=== PATIENT | male | born 1985 | race Caucasian/White ===

== ENCOUNTER 2016-07-10 08:04 | Emergency (ER) | payer SELFPAY ==
[2016-07-10] MEDS ORDERED: PENICILLIN V POTASSIUM 500 MG TABLET PO ONE (08:41)
--- NOTE | 2016-07-10 08:43 | ER Document Report ---
Addendum entered and electronically signed by KAYLENE GARCIA NP 07/10/16 09:46 : Discharge - Discharge Clinical Impression: bronchitis Condition: Good Disposition: HOME, SELF-CARE Instructions: Bronchitis ([facility]), Inhaled Bronchodilators ([facility]), Stop Smoking ( [facility]), Steroid Medication Additional Instructions: Return to the emergency room if worse Quit smoking Plenty of fluids Use them albuterol metered-dose inhaler Finish the prednisone Prescriptions: Albuterol Sulfate [Proair HFA Inhalation Aerosol 8.5 gm MDI] 2 puff IH Q3HP PRN #1 [email or web address] PRN Reason: Prednisone [Deltasone 10 mg Tablet] 10 mg PO ASDIR PRN #21 tablet PRN Reason: Forms: Return to Work Original Note: HPI - HPI Onset: This morning Onset/Duration: Gradual Pain Level: Denies Context: 30-year-old male with a decayed tooth on the top right upper bicuspid now has swelling and abscess this morning. It started hurting. Days ago. - EENT EENT: REPORTS: Nasal Drainage-Clear, Congestion - CARDIOVASCULAR Cardiovascular: DENIES: Chest pain - DERM Skin Color: Normal - NURSING COMMENTS Comment: See triage Past Medical History - Social History Smoking Status: Current Every Day Smoker Cigarette use (# per day): No Chew tobacco use (# tins/day): No Frequency of alcohol use: Social Drug Abuse: None Family History: Reviewed & Not Pertinent Patient has suicidal ideation: No Patient has homicidal ideation: No Renal/ Medical History: Denies: Hx Peritoneal Dialysis Surgical Hx: Negative - Immunizations Hx Diphtheria, Pertussis, Tetanus Vaccination: Yes - 2016 [facility] Provider Document - INFECTION CONTROL TRAVEL OUTSIDE OF THE [place] IN LAST 30 DAYS: No - RESPIRATORY O2 Sat by Pulse Oximetry: 100 Course - Re-evaluation Re-evalutation: 07/10/16 09:40 Chest x-ray is negative. No wheeze after breathing treatment he has used albuterol metered-dose inhaler in the past so we do not need to teach how to use it. I told him I would treat him with prednisone and inhaled bronchodilators and he needs a note for work. 07/10/16 09:41 - Vital Signs Vital signs: Temp Pulse Resp BP Pulse Ox 97.2 F 78 20 126/72 H 100 07/10/16 08:14 07/10/16 08:14 07/10/16 08:14 07/10/16 08:14 07/10/16 08:14 Discharge - Discharge Clinical Impression: bronchitis Condition: Good Disposition: HOME, SELF-CARE Instructions: Stop Smoking ([facility]), Bronchitis ([facility]), Inhaled Bronchodilators ( [facility]), Steroid Medication Additional Instructions: Return to the emergency room if worse Quit smoking Plenty of fluids Use them albuterol metered-dose inhaler Finish the prednisone Prescriptions: Albuterol Sulfate [Proair HFA Inhalation Aerosol 8.5 gm MDI] 2 puff IH Q3HP PRN #1 [email or web address] PRN Reason: Prednisone [Deltasone 10 mg Tablet] 10 mg PO ASDIR PRN #21 tablet PRN Reason:
[2016-07-10] MEDS ORDERED: ALBUTEROL SULFATE 0.083% NEB 2.5 MG/3 ML AMPUL NEB ONE (08:50)
[2016-07-10 09:52] VITALS: BP 125/70
== END 2016-07-10 09:52 | disposition home or self-care (01) ==
LOC: ER 08:04
DX: J40 Bronchitis, not specified as acute or chronic (principal); F17.210 Nicotine dependence, cigarettes, uncomplicated
CPT/HCPCS: 71020; 94640; 99283

== ENCOUNTER 2016-08-07 14:04 | Emergency (ER) | payer SELFPAY ==
[2016-08-07 14:32] VITALS: BP 127/74
[2016-08-07] MEDS ORDERED: OXYCODONE-ACETAMINOPHEN 5-325 MG TABLET PO ONE (16:42)
--- NOTE | 2016-08-07 17:29 | ER Document Report ---
HPI - HPI Patient complains to provider of: shoulder injury Onset: Yesterday Onset/Duration: Sudden Quality of pain: Sharp Pain Level: 5 Context: Patient states that he had a hold of his dogs lead yesterday and the dog pulled away from him causing him to fall on the ground. Patient complains of feeling like his shoulder came out of joint, but states that he put his shoulder back into joint yesterday. Patient reports previous history of shoulder dislocation in the past. Patient is right-hand dominant. Associated Symptoms: Other - Left shoulder joint pain Exacerbated by: Movement Relieved by: Denies Similar symptoms previously: Yes Recently seen / treated by doctor: No - ROS ROS below otherwise negative: Yes Systems Reviewed and Negative: Yes All other systems reviewed and negative - CONSTITUTIONAL Constitutional: DENIES: Fever, Chills - NEURO Neurology: DENIES: Weakness - GASTROINTESTINAL Gastrointestinal: DENIES: Nausea, Patient vomiting - MUSCULOSKELETAL Musculoskeletal: REPORTS: Extremity pain - Left shoulder. DENIES: Back Pain, Neck Pain - DERM Skin Color: Normal Skin Problems: None Past Medical History - General Information source: Patient - Social History Smoking Status: Current Every Day Smoker Frequency of alcohol use: Occasional Drug Abuse: None Occupation: [employer] Lives with: Family Family History: Reviewed & Not Pertinent Pulmonary Medical History: Reports: Hx Asthma Renal/ Medical History: Denies: Hx Peritoneal Dialysis Surgical Hx: Negative - Immunizations Hx Diphtheria, Pertussis, Tetanus Vaccination: Yes - 2016 [facility] Provider Document - CONSTITUTIONAL Agree With Documented VS: Yes Exam Limitations: No Limitations General Appearance: WD/WN, No Apparent Distress - INFECTION CONTROL TRAVEL OUTSIDE OF THE [place] IN LAST 30 DAYS: No - HEENT HEENT: Atraumatic, Normocephalic - NECK Neck: Normal Inspection, Supple - RESPIRATORY Respiratory: Breath Sounds Normal, No Respiratory Distress O2 Sat by Pulse Oximetry: 99 - CARDIOVASCULAR Cardiovascular: Regular Rate, Regular Rhythm Pulses: Normal: Radial - MUSCULOSKELETAL/EXTREMETIES Musculoskeletal/Extremeties: Tender - Tenderness involving left shoulder joint. Patient unable to flex or abduct left shoulder past 90 secondary to tenderness. No dislocation - NEURO Level of Consciousness: Awake, Alert, Appropriate Motor/Sensory: No Sensory Deficit - DERM Integumentary: Warm, Dry, No Rash Course - Vital Signs Vital signs: Temp Pulse Resp BP Pulse Ox 98.2 F 80 20 127/74 H 99 08/07/16 14:31 08/07/16 14:31 08/07/16 14:31 08/07/16 14:31 08/07/16 14:31 - Diagnostic Test Radiology reviewed: Image reviewed, Reports reviewed Procedures - Immobilization Left Shoulder Pre-Proc Neuro Vasc Exam: Normal Immobilizer type: Shoulder immobilizer Performed by: RN Post-Proc Neuro Vasc Exam: Normal Alignment checked and good: Yes Discharge - Discharge Clinical Impression: Sprain of shoulder, left Qualifiers: Encounter type: initial encounter Shoulder sprain type: unspecified sprain Qualified Code(s): S43.402A - Unspecified sprain of left shoulder joint, initial encounter Condition: Stable Disposition: HOME, SELF-CARE Instructions: Shoulder Injury ([facility]), Temporary Sling ([facility]), Ice & Elevation ( [facility]), Oral Narcotic Medication ([facility]) Additional Instructions: Return immediately for any new or worsening symptoms Followup with your primary care provider, call tomorrow to make a followup appointment Follow up with orthopedic Dr. for further evaluation, call tomorrow for an appointment time Wear shoulder immobilizer for the next 4-5 days and then remove. Prescriptions: Oxycodone HCl/Acetaminophen [Percocet 5-325 mg Tablet] 1 - 2 tab PO ASDIR PRN # 15 tablet PRN Reason: Forms: Return to Work Referrals: [facility] [Provider Group] - Follow up in 3-5 days
== END 2016-08-07 17:49 | disposition home or self-care (01) ==
LOC: ER 14:04
DX: S43.402A Unspecified sprain of left shoulder joint, initial encounter (principal); W19.XXXA Unspecified fall, initial encounter; M25.512 Pain in left shoulder; Z87.828 Personal history of other (healed) physical injury and trauma; F17.200 Nicotine dependence, unspecified, uncomplicated; J45.909 Unspecified asthma, uncomplicated
CPT/HCPCS: 99283; 73030; L3650

== ENCOUNTER 2017-01-07 17:17 | Emergency (ER) | payer SELFPAY ==
[2017-01-07 17:25] VITALS: BP 132/72
[2017-01-07] MEDS ORDERED: CLINDAMYCIN HCL 150 MG CAPSULE PO ONE (18:05)
[2017-01-07] MEDS ORDERED: OXYCODONE-ACETAMINOPHEN 5-325 MG TABLET PO ONE (18:05)
[2017-01-07] MEDS ORDERED: SULFAMETHOXAZOLE/TRIMETHOPRIM 800-160 MG TABLET PO ONE (18:08)
--- NOTE | 2017-01-07 18:59 | RADIOLOGY REPORT (SQ) ---
EXAM DESCRIPTION: KNEE RIGHT 3 VIEWS COMPLETED DATE/TIME: 01/07/2017 6:32 pm REASON FOR STUDY: knee pain and swelling COMPARISON: None. NUMBER OF VIEWS: 3 TECHNIQUE: AP, lateral, and sunrise patella radiographic images acquired of the right knee. LIMITATIONS: None. FINDINGS: MINERALIZATION: Normal. BONES: No acute fracture or dislocation. No worrisome bone lesions. JOINT: No effusion. SOFT TISSUES: Prepatellar soft tissue swelling. No radio-opaque foreign body. OTHER: No other significant finding. IMPRESSION: Prepatellar soft tissue swelling. No radio-opaque foreign body. No fracture. TECHNICAL DOCUMENTATION: JOB ID: [id number] [employer]- All Rights Reserved
--- NOTE | 2017-01-07 19:33 | ER Document Report ---
ED Extremity Problem, Lower - General Chief Complaint: R knee pain Stated Complaint: RIGHT KNEE PAIN Time Seen by Provider: 01/07/17 17:52 Notes: Patient is a 31-year-old male presents to emergency room complaining of right knee Pain. Patient states that started yesterday but got worse today. Patient states that he has had pain with knee flexion as well as redness started today. States that he has been able to walk and it does not hurt to stand on it hurts to bend it he is able to bend it to about 90. 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 Patient otherwise denies any direct trauma or injury to the knee. Denies any recent abrasions or lacerations to the knee. Patient also plays softball in his spare time. Patient denies any previous history of gout or family history of gout. Patient denies any previous diagnosis of MRSA. Denies any fevers or chills TRAVEL OUTSIDE OF THE [place] IN LAST 30 DAYS: No - Related Data Allergies/Adverse Reactions: No Known Allergies Allergy (Unverified 04/02/16 00:19) Past Medical History - Social History Smoking Status: Never Smoker Family History: Reviewed & Not Pertinent Pulmonary Medical History: Reports: Hx Asthma Renal/ Medical History: Denies: Hx Peritoneal Dialysis - Immunizations Hx Diphtheria, Pertussis, Tetanus Vaccination: Yes - 2016 Review of Systems - Review of Systems Constitutional: No symptoms reported Musculoskeletal: See HPI Skin: See HPI -: Yes All other systems reviewed and negative Physical Exam - Vital signs Vitals: Temp Pulse Resp BP Pulse Ox 98.3 F 79 16 132/72 H 99 01/07/17 17:23 01/07/17 17:23 01/07/17 17:23 01/07/17 17:23 01/07/17 17:23 - Notes Notes: PHYSICAL EXAM GENERAL: Alert, interacts well. NECK: Full range of motion. Supple. Trachea midline. LUNGS: Clear to auscultation bilaterally, no wheezes, rales, or rhonchi. No respiratory distress. HEART: Regular rate and rhythm. No murmurs, gallops, or rubs. EXTREMITIES: Moves all extremities spontaneously except for the right lower extremity. Patient is able to flex his knee to approximately 90 but with pain on the patellar tendon. Patient has notable swelling on the prepatellar bursa with overlying erythema and inflammation. Otherwise the rest of the knee nontender to palpation. No pain with axial loading of the joint. No laxity. No edema, radial and dorsalis pedis pulses 2/4 bilaterally. No cyanosis. NEUROLOGICAL: Alert and oriented x4. Normal speech. PSYCH: Normal affect, normal mood. SKIN: Warm, dry, normal turgor. No rashes or lesions noted. Course - Re-evaluation Re-evalutation: 01/07/17 20:35 Patient is a 31-year-old male who presents emergency department complaining of right knee pain. He is hemodynamically stable, no acute distress and afebrile. X-ray shows prepatellar inflammation without any evidence of generalized effusion or foreign body. Patient's presentation is consistent with prepatellar bursitis. Patient will be initiating antibiotics as well as pain medication. Site marked and patient instructed to follow-up in 5-7 days for wound check. Patient given strict return precautions otherwise and he expresses understanding. Patient is agreeable with plan. - Vital Signs Vital signs: Temp Pulse Resp BP Pulse Ox 98.3 F 79 16 132/72 H 99 01/07/17 17:23 01/07/17 17:23 01/07/17 17:23 01/07/17 17:23 01/07/17 17:23 - Diagnostic Test Radiology reviewed: Image reviewed, Reports reviewed Discharge - Discharge Clinical Impression: Prepatellar bursitis Qualifiers: Laterality: right Qualified Code(s): M70.41 - Prepatellar bursitis, right knee Condition: Good Disposition: HOME, SELF-CARE Instructions: Use of Crutches ([facility]), Ice & Elevation ([facility]), Oral Narcotic Medication ([facility]), Bursitis ([facility]) Additional Instructions: Please be sure to return to the emergency department if you feel your symptoms are getting worse, redness is spreading, fevers sustained over 102.5 not responding to Tylenol or Motrin walking, pain with movement of your knee. Please return to the emergency department in 5-7 days for wound check Prescriptions: Ibuprofen [Motrin 800 mg Tablet] 800 mg PO Q8H PRN #30 tab PRN Reason: Oxycodone HCl/Acetaminophen [Percocet 5-325 mg Tablet] 1 - 2 tab PO Q4H PRN #15 tablet PRN Reason: Sulfamethoxazole/Trimethoprim [Bactrim Ds Tablet] 2 each PO BID 14 Days
== END 2017-01-07 20:23 | disposition home or self-care (01) ==
LOC: ER 17:17
DX: M70.41 Prepatellar bursitis, right knee (principal); M25.561 Pain in right knee; J45.909 Unspecified asthma, uncomplicated
CPT/HCPCS: 99283

== ENCOUNTER 2017-01-23 11:47 | Emergency (ER) | payer SELFPAY ==
[2017-01-23 12:02] VITALS: BP 124/79
[2017-01-23] MEDS ORDERED: CEPHALEXIN 500 MG CAPSULE PO ONE (13:10)
--- NOTE | 2017-01-23 13:13 | ER Document Report ---
HPI - HPI Patient complains to provider of: Right knee pain Onset: Other - 3 weeks Onset/Duration: Persistent, Better Quality of pain: Achy Pain Level: 3 Context: Patient states that he was seen here earlier this month and treated for bursitis. Patient states that he is still taking his Bactrim. Patient denies any new injury to his knee. Patient states that he has not been doing kneeling activities while at work. Patient denies any fever. Patient states that area of redness has improved and swelling has improved although symptoms have not completely resolved. Patient has not followed up with an orthopedic as previously instructed. Associated Symptoms: Other - Right knee pain Exacerbated by: Movement Relieved by: Denies Similar symptoms previously: Yes Recently seen / treated by doctor: Yes - Earlier this month for this complaint - ROS ROS below otherwise negative: Yes Systems Reviewed and Negative: Yes All other systems reviewed and negative - CONSTITUTIONAL Constitutional: DENIES: Fever, Chills - CARDIOVASCULAR Cardiovascular: DENIES: Chest pain - MUSCULOSKELETAL Musculoskeletal: REPORTS: Extremity pain, Swelling - DERM Skin Color: Normal Skin Problems: None Past Medical History - General Information source: Patient - Social History Smoking Status: Current Every Day Smoker Chew tobacco use (# tins/day): No Frequency of alcohol use: Rare Drug Abuse: Marijuana Occupation: [employer] Family History: Reviewed & Not Pertinent Patient has suicidal ideation: No Patient has homicidal ideation: No - Medical History Medical History: Negative Pulmonary Medical History: Reports: Hx Asthma Renal/ Medical History: Denies: Hx Peritoneal Dialysis Surgical Hx: Negative - Immunizations Hx Diphtheria, Pertussis, Tetanus Vaccination: Yes - 2016 [facility] Provider Document - CONSTITUTIONAL Agree With Documented VS: Yes Exam Limitations: No Limitations General Appearance: WD/WN, No Apparent Distress - INFECTION CONTROL TRAVEL OUTSIDE OF THE [place] IN LAST 30 DAYS: No - HEENT HEENT: Atraumatic, Normocephalic - NECK Neck: Normal Inspection - RESPIRATORY Respiratory: Breath Sounds Normal, No Respiratory Distress O2 Sat by Pulse Oximetry: 93 - CARDIOVASCULAR Cardiovascular: Regular Rate, Regular Rhythm - MUSCULOSKELETAL/EXTREMETIES Musculoskeletal/Extremeties: MAEW, FROM, Tender - Small area of redness overlying the patella concerning for prepatellar bursitis, no concern for septic joint, Edema - Mild swelling over the patellar area of right knee - NEURO Level of Consciousness: Awake, Alert, Appropriate Motor/Sensory: No Motor Deficit - DERM Integumentary: Warm, Dry Course - Vital Signs Vital signs: Temp Pulse Resp BP Pulse Ox 98.3 F 69 124/79 93 01/23/17 11:59 01/23/17 11:59 01/23/17 11:59 01/23/17 11:59 Discharge - Discharge Clinical Impression: Prepatellar bursitis Qualifiers: Laterality: right Qualified Code(s): M70.41 - Prepatellar bursitis, right knee Condition: Stable Disposition: HOME, SELF-CARE Instructions: Anti-Inflammatory Medication ([facility]), Bursitis ([facility]), Cephalexin ( [facility]) Additional Instructions: Return immediately for any new or worsening symptoms Followup with your primary care provider, call tomorrow to make a followup appointment Follow-up with orthopedic doctor for further evaluation, call today for an appointment Finish your antibiotics as previously prescribed in addition to the new one prescribed today Prescriptions: Cephalexin Monohydrate [Keflex 500 mg Capsule] 500 mg PO Q6H 5 Days capsule Ibuprofen [Motrin 800 mg Tablet] 800 mg PO Q8H PRN #15 tab PRN Reason: Oxycodone HCl/Acetaminophen [Percocet 5-325 mg Tablet] 1 tab PO ASDIR PRN #8 tablet PRN Reason: Referrals: [facility] ([facility] [Provider Group] - Follow up tomorrow
== END 2017-01-23 13:15 | disposition home or self-care (01) ==
LOC: ER 11:47
DX: M70.41 Prepatellar bursitis, right knee (principal); M25.561 Pain in right knee; J45.909 Unspecified asthma, uncomplicated; F17.200 Nicotine dependence, unspecified, uncomplicated
CPT/HCPCS: 99283

== ENCOUNTER 2017-03-09 22:58 | Emergency (ER) | payer SELFPAY ==
[2017-03-10] MEDS ORDERED: MORPHINE SULFATE IR 15 MG TABLET PO ONE (00:32)
[2017-03-10] MEDS ORDERED: IBUPROFEN 600 MG TABLET PO ONE (00:32)
--- NOTE | 2017-03-10 01:26 | ER Document Report ---
ED Hand/Wrist Injury - General Chief Complaint: Finger Injury Stated Complaint: FINGER PAIN Time Seen by Provider: 03/10/17 00:04 Notes: Patient is a 31-year-old male without past medical history who presents with an injury to the left right ring finger. Patient states that he was trying to catch a baseball and hit his finger in an abnormal way. Since that time he has had a severe, constant, throbbing pain to the affected digit. Nothing improves the pain and he states any movement worsens the pain. No history of similar injury in the past. He is right-hand dominant. States the swelling has made it difficult to range his finger but he does note that he is still able to flex and extend the finger. Denies any additional injuries. TRAVEL OUTSIDE OF THE [place] IN LAST 30 DAYS: No - Related Data Allergies/Adverse Reactions: No Known Allergies Allergy (Verified 01/23/17 12:00) Past Medical History - General Information source: Patient - Social History Smoking Status: Never Smoker Frequency of alcohol use: None Drug Abuse: None Lives with: Spouse/Significant other Family History: Reviewed & Not Pertinent Pulmonary Medical History: Reports: Hx Asthma Renal/ Medical History: Denies: Hx Peritoneal Dialysis - Immunizations Hx Diphtheria, Pertussis, Tetanus Vaccination: Yes - 2015 Review of Systems - Review of Systems Notes: Constitutional: Negative for fever. Eyes: Negative for visual changes. ENT: Negative for facial injury Cardiovascular: Negative for chest injury. Respiratory: Negative for shortness of breath. Gastrointestinal: Negative for abdominal injury. Genitourinary: Negative for genital injury Musculoskeletal: Positive for right ring finger injury Skin: Negative for laceration/abrasions. Neurological: Negative for head injury. Physical Exam - Vital signs Vitals: Temp Pulse Resp BP Pulse Ox 98.1 F 87 17 132/79 H 97 03/09/17 23:11 03/09/17 23:11 03/09/17 23:11 03/09/17 23:11 03/09/17 23:11 Interpretation: Normal Notes: PHYSICAL EXAMINATION: GENERAL: Well-appearing, well-nourished and in no acute distress. HEAD: Atraumatic, normocephalic. EYES: sclera anicteric, conjunctiva are normal. ENT: Moist mucous membranes. NECK: Normal range of motion LUNGS: Normal work of breathing HEART: 2+ radial pulses bilaterally EXTREMITIES: There is diffuse swelling and ecchymosis at the level of the PIP extending to the DIP of the right ring finger. Full flexion extension at the DIP and PIP of the left ring finger NEUROLOGICAL: No focal neurological deficits. Moves all extremities spontaneously and on command. PSYCH: Normal mood, normal affect. SKIN: Warm, Dry, normal turgor, no rashes or lesions noted. Course - Re-evaluation Re-evalutation: 03/10/17 01:24 No evidence of a septic joint, gout flare, dislocation, or fracture on exam and imaging. Patient does have a ring on the injured finger although the swelling is over the PIP and DIP without any involvement over the metacarpal and PIP interspace. The ring is loose, it spins easily but cannot pass over the knuckle. Unfortunately, this is a tungsten carbide ring and our ring cutters will not work on this. Moreover, patient does not want any additional attempts at removing the ring secondary to extreme pain with attempts at pulling over the knuckle. He has expressed an understanding that if he notices any tightening of the ring around this area he needs to immediately return to the emergency department for emergent removal. To vitals wnl. At this time, I do not see an indication for labs or further imaging. Will discharge with conservative measures, return precautions, and follow-up recommendations. - Vital Signs Vital signs: Temp Pulse Resp BP Pulse Ox 98.1 F 80 17 130/75 H 97 03/09/17 23:11 03/10/17 02:15 03/09/17 23:11 03/10/17 02:15 03/09/17 23:11 - Diagnostic Test Radiology reviewed: Image reviewed, Reports reviewed Radiology results interpreted by me: 03/10/17 02:20 Right hand x-ray: No acute fracture or dislocation Discharge - Discharge Clinical Impression: Injury of right ring finger Qualifiers: Encounter type: initial encounter Qualified Code(s): S69.91XA - Unspecified injury of right wrist, hand and finger(s), initial encounter Condition: Good Disposition: HOME, SELF-CARE Additional Instructions: Your x-ray does not show any acute fracture today. You likely have a soft tissue injury. For your pain: Take ibuprofen 600 mg and acetaminophen 1000 mg every 6 hours together as needed for pain. Continue to apply ice to the area is much your able. Please follow-up with your primary care physician if you do not have improving your symptoms in the next 1-2 weeks. Please return immediately if you develop weakness, numbness, spreading redness from the area, or any other symptoms that are concerning to you.
[2017-03-10 02:16] VITALS: BP 130/75
--- NOTE | 2017-03-10 02:31 | RADIOLOGY REPORT (SQ) ---
EXAM DESCRIPTION: FINGER RIGHT CLINICAL HISTORY: 31 years, Male, trauma COMPARISON: None. NUMBER OF VIEWS: 3 TECHNIQUE: [place] hand radiographic technique. LIMITATIONS: None. FINDINGS: Small displaced right ring finger tuft fracture. No radiopaque soft tissue foreign bodies or soft tissue gas. No other fractures. IMPRESSION: Small displaced left ring finger tuft fracture. 2011 [facility] [employer]- All Rights Reserved
== END 2017-03-10 02:14 | disposition home or self-care (01) ==
LOC: ER 22:58
DX: S69.91XA Unspecified injury of right wrist, hand and finger(s), initial encounter (principal); S69.92XA Unspecified injury of left wrist, hand and finger(s), initial encounter; M79.89 Other specified soft tissue disorders; M79.645 Pain in left finger(s); W21.03XA Struck by baseball, initial encounter
CPT/HCPCS: 99283

== ENCOUNTER 2017-03-10 15:06 | Emergency (ER) | payer SELFPAY ==
[2017-03-10] MEDS ORDERED: BUPIVACAINE HCL 0.5 % INJ/PF 30 ML SDV INJ ONE (16:08)
--- NOTE | 2017-03-10 16:13 | ER Document Report ---
ED General - General Chief Complaint: Finger Injury Stated Complaint: RIGHT FINGER PAIN Time Seen by Provider: 03/10/17 15:57 Mode of Arrival: Ambulatory Information source: Patient Notes: Patient presents to emergency department with complaints of right ring finger swelling and he cannot remove the ring on his finger. Patient reports he was evaluated and treated in the emergency department last night for a finger injury. He was instructed his finger was sprained not fractured. At that time they could not remove his ring but was he was able to move the ring around his finger circumferential. Today he is not no longer able to move the ring around his finger. Patient reports increased pain. TRAVEL OUTSIDE OF THE [place] IN LAST 30 DAYS: No - HPI Onset: Yesterday Onset/Duration: Persistent Quality of pain: Achy Severity: Severe Pain Level: 5 Associated symptoms: None Exacerbated by: Denies Relieved by: Denies Similar symptoms previously: Yes Recently seen / treated by doctor: Yes - Related Data Allergies/Adverse Reactions: No Known Allergies Allergy (Verified 03/10/17 15:09) Past Medical History - General Information source: Patient - Social History Smoking Status: Unknown if Ever Smoked Cigarette use (# per day): No Frequency of alcohol use: None Drug Abuse: None Occupation: [employer] Lives with: Family Family History: Reviewed & Not Pertinent Patient has suicidal ideation: No Patient has homicidal ideation: No Pulmonary Medical History: Reports: Hx Asthma Renal/ Medical History: Denies: Hx Peritoneal Dialysis - Immunizations Hx Diphtheria, Pertussis, Tetanus Vaccination: Yes - 2015 Review of Systems - Review of Systems Notes: Review HPI for review of systems., All other systems negative Physical Exam - Vital signs Vitals: Temp Pulse Resp BP Pulse Ox 97.7 F 79 16 140/80 H 99 03/10/17 15:10 03/10/17 15:10 03/10/17 15:10 03/10/17 15:10 03/10/17 15:10 - Notes Notes: PHYSICAL EXAMINATION: GENERAL: no acute distress HEAD: Atraumatic, normocephalic. EYES: Pupils equal round , extraocular movements intact, sclera anicteric, conjunctiva are normal. ENT: nares patent, Moist mucous membranes. NECK: Normal range of motion, supple LUNGS: RR even/unlabored HEART: Regular rate EXTREMITIES: left 4th digit swollen, ttp, + cap refill, dried blood to finger nail NEUROLOGICAL: Cranial nerves grossly intact. Normal sensory/motor exams. PSYCH: Normal mood, normal affect. SKIN: Warm, Dry, normal turgor, no rashes or lesions noted Course - Re-evaluation Re-evalutation: 03/10/17 Digital block completed on 4th finger, pt reports no pain, Ring removed from 4th digit after much manipulation and soap. Pt tolerated procedure well, pt instructed on medications, tuft fracture, importance of monitoring for infection , return for concerns. He verbalized understanding. - Vital Signs Vital signs: Temp Pulse Resp BP Pulse Ox 97.7 F 70 16 139/90 H 100 03/10/17 15:10 03/10/17 17:14 03/10/17 17:14 03/10/17 17:14 03/10/17 17:14 - Diagnostic Test Radiology reviewed: Image reviewed, Reports reviewed - report from 03/09/17, tuft fx Procedures - Immobilization Right 4th digit Pre-Proc Neuro Vasc Exam: Normal Immobilizer type: Finger splint (Static) Performed by: PCT Post-Proc Neuro Vasc Exam: Normal Alignment checked and good: Yes Discharge - Discharge Clinical Impression: TUFT FRACTURE, RING REMOVAL, Elevated blood pressure reading Condition: Stable Disposition: HOME, SELF-CARE Instructions: Ice & Elevation ([facility]), Open Finger Tuft Fracture ([facility]), Oral Narcotic Medication ([facility]) Additional Instructions: *You have been evaluated for tuft fracture, ring removal *Maintain the splint *Rest/Ice/Elevate your finger *Follow up with orthopedics within one week *Take medication as prescribed for pain and antibiotics *Return to ED for worsening condition, changes, needs Monitor your blood pressure. Your blood pressure was elevated today. This may be because you were anxious, in pain or because you need medication. It is important to follow up with your primary care provider for full evaluation. Prescriptions: Cephalexin Monohydrate [Keflex 250 Mg Capsule] 250 mg PO QID #20 capsule Oxycodone HCl/Acetaminophen [Percocet 5-325 mg Tablet] 1 tab PO ASDIR PRN #15 tablet PRN Reason: Forms: Elevated Blood Pressure, Return to Work
--- NOTE | 2017-03-10 16:38 | RADIOLOGY REPORT (SQ) ---
EXAM DESCRIPTION: FINGER RIGHT COMPLETED DATE/TIME: 03/10/2017 4:18 pm REASON FOR STUDY: pain and swelling 4th digit COMPARISON: None. NUMBER OF VIEWS: Four views. TECHNIQUE: AP, lateral, and oblique images acquired of the right fourth finger. LIMITATIONS: Radiopaque ring on the 4th digit limits evaluation of the proximal phalanx. FINDINGS: MINERALIZATION: Normal. BONES: There is a mildly displaced longitudinal oblique fracture of the palmar base of the 4th digit middle phalanx and a mildly displaced longitudinal oblique fracture of the dorsal base of the 4th dig it distal phalanx. Additionally, there is a nondisplaced tuft fracture of the 4th digit distal phala nx. SOFT TISSUES: No soft tissue swelling. No foreign body. OTHER: No other significant finding. IMPRESSION: Mildly displaced fractures of 4th digit middle and distal phalanges with intra-articular extension. Nondisplaced tuft fracture of the 4th digit distal phalanx. COMMENT: SITE OF TRAUMA/COMPLAINT MARKED/STAMP COMPLETED: No TECHNICAL DOCUMENTATION: JOB ID: [id number] [employer]- All Rights Reserved
[2017-03-10] MEDS ORDERED: OXYCODONE-ACETAMINOPHEN 5-325 MG TABLET PO ONE (17:03)
[2017-03-10] MEDS ORDERED: CEPHALEXIN 500 MG CAPSULE PO ONE (17:03)
[2017-03-10 17:44] VITALS: BP 139/90
== END 2017-03-10 17:14 | disposition home or self-care (01) ==
LOC: ER 15:06
PROC: 2W3JX1Z Immobilization of Right Finger using Splint (ICD-10-PCS; principal; 2017-03-10)
DX: S62.604A Fracture of unspecified phalanx of right ring finger, initial encounter for closed fracture (principal); R03.0 Elevated blood-pressure reading, without diagnosis of hypertension; M79.89 Other specified soft tissue disorders; X58.XXXA Exposure to other specified factors, initial encounter
CPT/HCPCS: 99283

== ENCOUNTER 2017-10-23 23:24 | Emergency (ER) | payer SELFPAY ==
[2017-10-24 00:02] VITALS: BP 134/81
--- NOTE | 2017-10-24 00:08 | ER Document Report ---
ED Skin Rash/Insect Bite/Abscs - General Chief Complaint: Rash Stated Complaint: RASH Time Seen by Provider: 10/23/17 23:54 Mode of Arrival: Ambulatory Information source: Patient TRAVEL OUTSIDE OF THE [place] IN LAST 30 DAYS: No - HPI Notes: 32-year-old male presents emergency department for evaluation of rash to bilateral arms and legs specifically around the knee area approximately 1 week. She reports that he has been crawling around a in crawl spaces at work. He reports that rash mildly itches and there is no pain. He denies taking any new medications. Denies being sick recently. He also denied any fevers, sore throat, joint pain, chest pain, shortness of breath, wheezing, abdominal pain, nausea, vomiting, diarrhea, dysuria, hematuria. - Related Data Allergies/Adverse Reactions: No Known Allergies Allergy (Verified 03/10/17 15:09) Past Medical History - General Information source: Patient - Social History Smoking Status: Current Every Day Smoker Family History: Reviewed & Not Pertinent Pulmonary Medical History: Reports: Hx Asthma Renal/ Medical History: Denies: Hx Peritoneal Dialysis - Immunizations Hx Diphtheria, Pertussis, Tetanus Vaccination: Yes - 2016 Review of Systems - Review of Systems -: Yes All other systems reviewed and negative Physical Exam - Vital signs Vitals: Temp Pulse Resp BP Pulse Ox 97.7 F 71 16 134/81 H 99 10/24/17 00:01 10/24/17 00:01 10/24/17 00:01 10/24/17 00:01 10/24/17 00:01 - Notes Notes: PHYSICAL EXAMINATION: GENERAL: Well-appearing, well-nourished and in no acute distress. HEAD: Atraumatic, normocephalic. ENT: Nares patent, oropharynx clear without exudates. Moist mucous membranes. NECK: Normal range of motion, supple without lymphadenopathy LUNGS: Breath sounds clear to auscultation bilaterally and equal. No wheezes rales or rhonchi. HEART: Regular rate and rhythm without murmurs NEUROLOGICAL: Normal gait, balance, speech, and facial symmetry. PSYCH: Normal mood, normal affect. SKIN: Fine macular papular rash on bilateral arms and on bilateral knees with different stages of healing. Normal blanching. No tenderness to palpation. No hot to the touch. No lymphangitis. No abscess. Otherwise skin is warm and dry with normal turgor. Course - Re-evaluation Re-evalutation: 10/24/17 00:23 Rash is likely contact dermatitis. No evidence of SJS, TEN, or life- threatening illness. She was nontoxic or septic appearing in no acute or respiratory distress. Patient is afebrile not hypoxic. Likelihood of other entities in the differential is insufficient to justify any further testing for them. I discussed care plan at length with patient. Any and all questions were answered. Discharged home with prednisone and Benadryl. Advised patient to follow-up with PCP and take medications as instructed. Also advised him to return immediately to the emergency department for any new, worsening, or concerning symptoms as discussed. He understands and agrees with plan. - Vital Signs Vital signs: Temp Pulse Resp BP Pulse Ox 97.7 F 71 16 134/81 H 99 10/24/17 00:01 10/24/17 00:01 10/24/17 00:01 10/24/17 00:01 10/24/17 00:01 Discharge - Discharge Clinical Impression: Contact dermatitis Qualifiers: Contact dermatitis type: unspecified Contact dermatitis trigger: unspecified trigger Qualified Code(s): L25.9 - Unspecified contact dermatitis, unspecified cause Condition: Good Instructions: Contact Dermatitis ([facility]), Family Physicians / Practices Additional Instructions: Please follow-up with PCP and take medications as instructed. Return immediately to the emergency department for any new, worsening, or concerning symptoms as discussed. Prescriptions: Diphenhydramine HCl [Benadryl 25 mg Capsule] 1 cap PO Q4 PRN #1 pkg PRN Reason: Prednisone 60 mg PO DAILY #15 tablet Forms: Return to Work
== END 2017-10-24 00:20 | disposition home or self-care (01) ==
LOC: ER 23:24
DX: L25.9 Unspecified contact dermatitis, unspecified cause (principal); F17.200 Nicotine dependence, unspecified, uncomplicated
CPT/HCPCS: 99282

== ENCOUNTER 2019-06-22 07:24 | Emergency (ER) | payer BC ==
--- NOTE | 2019-06-22 09:50 | RADIOLOGY REPORT (SQ) ---
EXAM DESCRIPTION: KNEE RIGHT 4 VIEWS COMPLETED DATE/TIME: 06/22/2019 9:29 am REASON FOR STUDY: right knee pain and swelling COMPARISON: None. NUMBER OF VIEWS: Four views. TECHNIQUE: AP, lateral, and both oblique radiographic images acquired of the right knee. LIMITATIONS: None. FINDINGS: MINERALIZATION: Normal. BONES: No acute fracture or dislocation. No worrisome bone lesions. JOINT: Small effusion. SOFT TISSUES: No soft tissue swelling. No radio-opaque foreign body. OTHER: No other significant finding. IMPRESSION: Small joint effusion. TECHNICAL DOCUMENTATION: JOB ID: [id number] [employer]- All Rights Reserved Reading location - IP/workstation name: [email or web address]
[2019-06-22] MEDS ORDERED: HYDROCODONE/ACETAMINOPHEN 5-325 MG (6 TAB/ER DISP) PO PRN (10:10)
[2019-06-22 10:49] VITALS: BP 125/77
--- NOTE | 2019-06-23 11:19 | ER Document Report ---
Entered by SHAGGY BERKOWITZ SCRIBE 06/22/19 1015 Acting as scribe for:DAVID WOLFE IV, MD ED General - General Chief Complaint: Knee Pain Stated Complaint: RIGHT KNEE INJURY Time Seen by Provider: 06/22/19 08:38 Primary Care Provider: PEREZ ARGUELLO MD [Primary Care Provider] - Follow up as needed LEWIS ROMAN JR, DO [ACTIVE PROVISIONAL STAFF] - Follow up in 3-5 days Notes: This 33 year old male presents to the emergency department with complaints of pain and swelling in his right knee. Patient states his knee was injured due to a fall while playing baseball yesterday afternoon. Patient states his leg is "tingling and tight" below his right knee. TRAVEL OUTSIDE OF THE [place] IN LAST 30 DAYS: No - Related Data Allergies/Adverse Reactions: No Known Allergies Allergy (Verified 06/22/19 07:30) Past Medical History - General Information source: Patient - Social History Smoking Status: Current Every Day Smoker Cigarette use (# per day): Yes Drug Abuse: Marijuana Family History: Reviewed & Not Pertinent Patient has suicidal ideation: No Patient has homicidal ideation: No Pulmonary Medical History: Reports: Hx Asthma - Immunizations Hx Diphtheria, Pertussis, Tetanus Vaccination: Yes - 2016 Review of Systems - Review of Systems Constitutional: No symptoms reported EENT: No symptoms reported Cardiovascular: No symptoms reported Respiratory: No symptoms reported Gastrointestinal: No symptoms reported Genitourinary: No symptoms reported Male Genitourinary: No symptoms reported Musculoskeletal: See HPI, Joint pain - right knee, Joint swelling - Right knee Skin: No symptoms reported Hematologic/Lymphatic: No symptoms reported Neurological/Psychological: No symptoms reported -: Yes All other systems reviewed and negative Physical Exam - Vital signs Vitals: Temp Pulse Resp BP Pulse Ox 97.5 F 88 16 123/78 98 06/22/19 07:28 06/22/19 07:28 06/22/19 07:28 06/22/19 07:28 06/22/19 07:28 - General General appearance: Appears well, Alert - HEENT Head: Normocephalic, Atraumatic Eyes: Normal Pupils: PERRL - Respiratory Respiratory status: No respiratory distress - Abdominal Inspection: Normal Distension: No distension - Extremities Knee: Other - Soft tissue swelling of the medial right leg. No step-off, no ligamentous laxity, and no crepitus.. No: Deformity - Neurological Neuro grossly intact: Yes Cognition: Normal Orientation: AAOx4 - Psychological Associated symptoms: Normal affect, Normal mood - Skin Skin Temperature: Warm Skin Moisture: Dry Skin Color: Normal Course - Re-evaluation Re-evalutation: 06/22/19 10:12 Results of ED MSE discussed with patient. Patient instructed to not bear weight on his right lower extremity for at least 4 to 5 days and then start to progress to toe-touch and further advance weightbearing as tolerated as long as it is not painful. All questions were answered prior to discharge. - Vital Signs Vital signs: Temp Pulse Resp BP Pulse Ox 97.6 F 64 16 125/77 99 06/22/19 10:48 06/22/19 10:48 06/22/19 10:48 06/22/19 10:48 06/22/19 10:48 - Diagnostic Test Radiology reviewed: Reports reviewed Discharge - Discharge Clinical Impression: Strain of right knee Qualifiers: Encounter type: initial encounter Qualified Code(s): S86.911A - Strain of unspecified muscle(s) and tendon(s) at lower leg level, right leg, initial encounter Condition: Good Disposition: HOME, SELF-CARE Instructions: Use of Crutches ([facility]), Ice & Elevation ([facility]), Knee Immobilizing Splint ([facility]), Oral Narcotic Medication ([facility]), Sprained Knee ([facility]) Additional Instructions: Return to the Emergency Department without delay if any worse. HOME CARE INSTRUCTIONS & INFORMATION: Thank you for choosing us for your medical needs. We hope you're satisfied with the care you received. After you leave, you must properly care for your problem and, at the same time, observe its progress. Any condition can change. Some illnesses can change rapidly over hours or days. If your condition worsens, return to the Emergency Department or see your physician promptly. ABOUT YOUR X-RAYS AND EKG'S: If you had an EKG or X-rays taken, they have been read by the Emergency Physician. The X-rays and EKG's will also be read by a Radiologist or Nuclear Medicine Specialist within 24 hours. If discrepancies are noted, you will be notified by telephone. Please be certain the ED has a correct telephone number & address where you can be reached. Also, realize that some fractures or abnormalities do not show up on initial X-rays. If your symptoms continue, see your physician. ABOUT YOUR LABORATORY TEST: If you had laboratory tests, the results have been reviewed by the Emergency Physician. Some test results (for example cultures) may not be available for several days. You will be contacted if any test result shows you need additional treatment. Please be certain the ED has a correct telephone number and address where you can be reached. ABOUT YOUR MEDICATIONS: You will receive instructions on how to take your medicine on the prescription label you receive. Additional information may be provided by the Pharmacy. If you have questions afterwards, call the ED for clarification or further instructions. Some prescribed medications may cause drowsiness. Do not perform tasks such as driving a car or operating machinery without consulting your Pharmacist. If you feel you need a refill of pain medication, your condition will need re-evaluation. Please do not call for a refill of any medication. ABOUT YOUR SIGNATURE: Signature of this document acknowledges to followin. Understanding that you received emergency treatment and that you may be released before al medical problems are known or treated. Please be certain the ED has a correct phone number & address where you can be reached. 2. Acknowledgement that you will arrange for follow-up care as recommended. 3. Authorization for the Emergency Physician to provide information to your follow-up Physician in order to maximize your care. AT ANY TIME, IF YOUR SYMPTOMS CHANGE SIGNIFICANTLY OR WORSEN OR YOU DEVELOP NEW SYMPTOMS, RETURN TO THE EMERGENCY DEPARTMENT IMMEDIATELY FOR RE-EVALUATION. OUR GOAL IS TO PROVIDE EXCELLENT MEDICAL CARE! WE HOPE THAT WE HAVE MET YOUR EXPECTATIONS DURING YOUR EMERGENCY DEPARTMENT VISIT AND THAT YOU FEEL YOU HAVE RECEIVED EXCELLENT CARE! Prescriptions: Oxycodone HCl/Acetaminophen [Percocet 5-325 mg Tablet] 1 tab PO Q6HP PRN #15 tablet PRN Reason: severe pain Forms: Return to Work Referrals: PEREZ ARGUELLO MD [Primary Care Provider] - Follow up as needed LEWIS ROMAN JR, DO [ACTIVE PROVISIONAL STAFF] - Follow up in 3-5 days I personally performed the services described in the documentation, reviewed and edited the documentation which was dictated to the scribe in my presence, and it accurately records my words and actions.
== END 2019-06-22 10:48 | disposition home or self-care (01) ==
LOC: ER 07:24
DX: S86.911A Strain of unspecified muscle(s) and tendon(s) at lower leg level, right leg, initial encounter (principal); M25.561 Pain in right knee; M25.461 Effusion, right knee; W19.XXXA Unspecified fall, initial encounter; Y93.64 Activity, baseball; F17.210 Nicotine dependence, cigarettes, uncomplicated; F12.10 Cannabis abuse, uncomplicated; J45.909 Unspecified asthma, uncomplicated
CPT/HCPCS: 99283; 73564; L1830